=== PATIENT | male | born 1975 | race Caucasian/White ===

== ENCOUNTER 2016-10-18 20:15 | Emergency (ER) | payer MEDICARE ==
[~2016-10-18] VITALS: Ht 182.8 cm; Wt 104.3 kg
[2016-10-18] MEDS ORDERED: PROAIR HFA8.5 GM INH (20:35)
[2016-10-18] MEDS ORDERED: NEXIUM40 MG/PACK PO (20:35)
[2016-10-18] MEDS ORDERED: BP MED (20:36)
[2016-10-18] MEDS ORDERED: CYCLOBENZAPRINE10 MG PO (21:29)
== END 2016-10-18 21:33 | disposition home or self-care (01) ==
LOC: ED 20:15
DX: S40.012A Contusion of left shoulder, initial encounter (principal); S39.012A Strain of muscle, fascia and tendon of lower back, initial encounter; Z88.6 Allergy status to analgesic agent; W00.1XXA Fall from stairs and steps due to ice and snow, initial encounter; Y93.89 Activity, other specified; Y92.9 Unspecified place or not applicable; Y99.9 Unspecified external cause status